=== PATIENT | female | born 2000 | race Caucasian/White ===

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

== ENCOUNTER 2022-09-17 19:45 | Emergency (ER) | payer BC ==
[~2022-09-17] VITALS: Ht 167.6 cm; Wt 68.0 kg
[2022-09-17 21:17] VITALS: BP 130/91
== END 2022-09-18 00:08 | disposition home or self-care (01) ==
LOC: ER 19:45
DX: S61.214A Laceration without foreign body of right ring finger without damage to nail, initial encounter (principal); W22.8XXA Striking against or struck by other objects, initial encounter; Z88.0 Allergy status to penicillin; Z88.5 Allergy status to narcotic agent; Z88.8 Allergy status to other drugs, medicaments and biological substances
CPT/HCPCS: 12001; 90715; 99282-25

== ENCOUNTER 2023-11-03 11:23 | Inpatient (IN) | payer BC ==
[2023-11-03] VITALS (31 sets, daily range): BP systolic 98–164; BP diastolic 61–98
[~2023-11-03] VITALS: Ht 165.1 cm; Wt 74.5 kg
[2023-11-03] MEDS ORDERED: Lactated Ringer's 1,000 ML IV SCH ×3 (12:00→19:55)
[2023-11-03] MEDS ORDERED: ePHEDrine Sulfate 50 MG/ML 1ML Injection XX PRN (12:00)
[2023-11-03] MEDS ORDERED: FentaNYL 2mcg/ml-Bup 0.1% Epd 250 ML EPI PRN (12:00)
[2023-11-03] MEDS ORDERED: Ondansetron HCl 2 MG / ML 2ML Vial IV PRN (12:05)
[2023-11-03] MEDS ORDERED: Misoprostol 200 MCG Tab PR PRN (12:05)
[2023-11-03] MEDS ORDERED: Acetaminophen 500 MG Tab PO PRN (12:05)
[2023-11-03] MEDS ORDERED: Misoprostol 200 MCG Tab BC PRN (12:05)
[2023-11-03] MEDS ORDERED: Carboprost Tromethamine 250 MCG/ML 1ML Amp IM PRN (12:05)
[2023-11-03] MEDS ORDERED: Oxytocin 10 Unit / ML Vial IM PRN (12:05)
[2023-11-03] MEDS ORDERED: OXYTOCIN/RINGER'S LACTATE 500 ML IV PRN (12:05)
[2023-11-03] MEDS ORDERED: Methylergonovine Maleate 0.2MG / ML 1ML Amp IM PRN ×2 (12:05→19:55)
[2023-11-03] MEDS ORDERED: Tranexamic Acid 100 ML IV SCH (12:05)
[2023-11-03] MEDS ORDERED: Lactated Ringer's 1,000 ML IV PRN (12:05)
[2023-11-03] MEDS ORDERED: OXYTOCIN/RINGER'S LACTATE 500 ML IV ONE (12:09)
[2023-11-03] MEDS ORDERED: Calcium Carbonate 500 MG Tab Chew PO SCH (12:10)
[2023-11-03 12:26] LABS: BASOPHILS ABSOLUTE AUTO 0.04 K/mm3 (0.00-0.23); BASOPHILS PERCENT AUTO 0 % (0-2); EOSINOPHILS ABSOLUTE AUTO 0.03 K/mm3 (0.00-0.68); EOSINOPHILS PERCENT AUTO 0 % (0-6); Hematocrit 32.6 % (33.0-51.0); Hemoglobin 10.8 g/dL (11.5-16.0); IMMATURE GRAN ABSOLUTE AUTO 0.03 K/mm3 (0.00-0.10); IMMATURE GRAN PERCENT AUTO 0 % (0-1); LYMPHOCYTES ABSOLUTE AUTO 1.61 K/mm3 (0.84-5.20); LYMPHOCYTES PERCENT AUTO 16 % (21-46); MONOCYTES ABSOLUTE AUTO 0.58 K/mm3 (0.16-1.47); MONOCYTES PERCENT AUTO 6 % (4-13); Mean Corpuscular HGB 26.9 pg (26.0-34.0); Mean Corpuscular HGB Conc 33.1 g/dL (31.5-36.5); Mean Corpuscular Volume 81 fL (80-100); Mean Platelet Volume 10.1 fL (9.1-12.4); NEUTROPHILS ABSOLUTE AUTO 7.77 K/mm3 (1.96-9.15); NEUTROPHILS PERCENT AUTO 77 % (41-73); Platelet Count 222 K/mm3 (150-400); RDW Coefficient Variation 13.3 % (11.7-14.2); Red Blood Cell Count 4.02 M/mm3 (3.80-5.20); White Blood Cell Count 10.06 K/mm3 (4.00-11.30)
[2023-11-03] MEDS ORDERED: FentaNYL Citrate 50 MCG/ML 2 ML Injection ONE (12:45)
[2023-11-03] MEDS ORDERED: FentaNYL Citrate 50 MCG/ML 2 ML Injection IV PRN (12:50)
[2023-11-03] MEDS ORDERED: OXYTOCIN/RINGER'S LACTATE 500 ML IV SCH (19:55)
[2023-11-03] MEDS ORDERED: Lanolin Cream TOP PRN (19:55)
[2023-11-03] MEDS ORDERED: Ketorolac Tromethamine 30mg Vial IV PRN (19:55)
[2023-11-03] MEDS ORDERED: Misoprostol 200 MCG Tab PO PRN (19:55)
[2023-11-03] MEDS ORDERED: Benzocaine Topical Anesthetic Spray 60GM TOP PRN (20:00)
[2023-11-03] MEDS ORDERED: Witch Hazel/Glycerin PADS TOP PRN (20:00)
[2023-11-03] MEDS ORDERED: Docusate Sodium 100 MG Cap PO PRN (20:00)
[2023-11-03] MEDS ORDERED: Ibuprofen 400 MG Tab PO PRN (20:00)
[2023-11-04 04:11] VITALS: BP 108/65
[2023-11-04 07:35] VITALS: BP 102/59
[2023-11-04 08:06] LABS: Hematocrit 30.3 % (33.0-51.0); Hemoglobin 9.7 g/dL (11.5-16.0); Mean Corpuscular HGB 26.4 pg (26.0-34.0); Mean Corpuscular Volume 83 fL (80-100); Mean Platelet Volume 10.5 fL (9.1-12.4); Platelet Count 184 K/mm3 (150-400); RDW Coefficient Variation 13.2 % (11.7-14.2); RDW Standard Deviation 40.1 fL (35.1-46.3); Red Blood Cell Count 3.67 M/mm3 (3.80-5.20); White Blood Cell Count 11.66 K/mm3 (4.00-11.30)
[2023-11-04] MEDS ORDERED: Prenatal Vit/FE Fumarate/FA 1 Tab PO SCH (09:00)
[2023-11-04 11:21] VITALS: BP 109/68
[2023-11-04 14:48] VITALS: BP 118/77
[2023-11-04 20:03] VITALS: BP 112/68
--- NOTE | 2023-11-04 21:02 | NUR ---
Pt returned to rm. no needs at this time.
[2023-11-04 23:27] VITALS: BP 96/57
[2023-11-05 06:12] VITALS: BP 86/49
[2023-11-05 06:13] VITALS: BP 104/66
[2023-11-05 11:05] VITALS: BP 110/71
--- NOTE | 2023-11-05 13:15 | NUR ---
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 Verbalized understanding of earlier teaching/printed instructions and follow up. ID bands matched w/nb. Pt d/c'd home ambulatory to care of SO.
[2023-11-05 13:17] VITALS: BP 117/81
== END 2023-11-05 13:45 | disposition home or self-care (01) | DRG 807 ==
LOC: BC 11:23 → OBS 11:23 → BC 11:48
PROVIDERS: ADMIT Advanced Practice Midwife
PROC: 10E0XZZ Delivery of Products of Conception, External Approach (ICD-10-PCS; principal; 2023-11-03)
PROC: 3E0R3BZ Introduction of Anesthetic Agent into Spinal Canal, Percutaneous Approach (ICD-10-PCS; 2023-11-03)
PROC: 00HU33Z Insertion of Infusion Device into Spinal Canal, Percutaneous Approach (ICD-10-PCS; 2023-11-03)
PROC: 10907ZC Drainage of Amniotic Fluid, Therapeutic from Products of Conception, Via Natural or Artificial Opening (ICD-10-PCS; 2023-11-03)
DX: O32.6XX0 Maternal care for compound presentation, not applicable or unspecified (principal); Z37.0 Single live birth; Z3A.39 39 weeks gestation of pregnancy; O70.0 First degree perineal laceration during delivery
CPT/HCPCS: 36415; 51702; 85025; 85027; 86850; 86900; 86901; A9270; J1885; J2210; J2405; J2590; J3010; J7120